=== PATIENT | female | born 1975 | race Caucasian/White ===

== ENCOUNTER 2017-10-17 15:10 | Day surgery (SDC) | payer BC, OTHER ==
[~2017-10-17] VITALS: Ht 170.2 cm; Wt 64.2 kg
[2017-10-17 15:49] VITALS: BP 107/71
[2017-10-17] MEDS ORDERED: MAGN400T36 PO (16:00)
[2017-10-17] MEDS ORDERED: ASCO250T3 PO (16:00)
[2017-10-17] MEDS ORDERED: PREN1COM10 PO (16:00)
[2017-10-17] MEDS ORDERED: L.AC1CAP6 PO (16:00)
[2017-10-17 16:01] LABS: BASOPHILS # (AUTO) 0.04 x10^3/uL (0-0.1); BASOPHILS % (AUTO) 0 % (0-1); EOSINOPHILS # (AUTO) 0.03 x10^3/uL (0-0.4); EOSINOPHILS % (AUTO) 0 % (1-7); LYMPHOCYTES # (AUTO) 1.44 x10^3/uL (1-3.4); LYMPHOCYTES % (AUTO) 16 % (22-44); MD NO; MEAN CORPUSCULAR HEMOGLOBIN 31.8 pg (27.0-34.8); MEAN CORPUSCULAR HGB CONC 34.8 g/dL (32.4-35.8); MEAN CORPUSCULAR VOLUME 91.4 fL (80-100); MEAN PLATELET VOLUME 7.1 fL (7.4-10.4); MONOCYTES # (AUTO) 0.29 x10^3/uL (0.2-0.8); MONOCYTES % (AUTO) 3 % (2-9); NEUTROPHILS # (AUTO) 7.12 x10^3/uL (1.8-6.8); NEUTROPHILS % (AUTO) 80 % (42-75); PLATELET COUNT 265 x10^3/uL (130-400); RED BLOOD COUNT 4.46 x10^6/uL (3.82-5.3)
[2017-10-17] MEDS ORDERED: LACTATED RINGERS 1,000 ML IV SCH ×2 (16:05→18:34)
[2017-10-17] MEDS ORDERED: LIDOCAINE-MPF 1%, 2ML INFIL ONE (16:30)
[2017-10-17] MEDS ORDERED: BUPIVACAINE 0.25% ONE (16:37)
[2017-10-17] MEDS ORDERED: OXYTOCIN 10 UNITS/ML, 1ML ONE (16:38)
[2017-10-17] MEDS ORDERED: SILVER NITRATE STICK TP ONE (16:38)
[2017-10-17] MEDS ORDERED: EPINEPHRINE 1 MG/ML, 1ML ONE (16:38)
[2017-10-17] MEDS ORDERED: VASOPRESSIN 20 UNIT/ML, 1ML ONE (16:38)
[2017-10-17] MEDS ORDERED: METHYLERGONOVINE 0.2 MG/ML IM ONE (16:38)
[2017-10-17] MEDS ORDERED: MISOPROSTOL 200 MCG TABLET ONE (16:38)
[2017-10-17] MEDS ORDERED: PROPOFOL 10 MG/ML, 20ML ONE (16:43)
[2017-10-17] MEDS ORDERED: MIDAZOLAM 1 MG/ML, 2ML ONE (16:46)
[2017-10-17] MEDS ORDERED: FENTANYL PF 100 MCG/2ML ONE (16:46)
[2017-10-17] MEDS ORDERED: ACETAMINOPHEN 325 MG TABLET PO PRN (17:00)
[2017-10-17] MEDS ORDERED: FENTANYL PF 100 MCG/2ML IV PRN (17:00)
[2017-10-17] MEDS ORDERED: OXYcodone 5 MG/5 ML ORAL.SOL UDC PO PRN (17:00)
[2017-10-17] MEDS ORDERED: PROMETHAZINE 12.5 MG SUPP PR PRN (17:00)
[2017-10-17] MEDS ORDERED: CEFAZOLIN 1,000 MG ONE (17:12)
[2017-10-17] MEDS ORDERED: DEXAMETHASONE 4 MG/ML, 1ML ONE (17:17)
[2017-10-17] MEDS ORDERED: KETOROLAC 30 MG/1 ML ONE (17:17)
[2017-10-17] MEDS ORDERED: ONDANSETRON 2MG/ML, 2ML ONE ×2 (17:17)
[2017-10-17] MEDS ORDERED: ACETAMINOPHEN 650 MG/20.3 ML UDC ONE (17:40)
[2017-10-17] MEDS ORDERED: OXYcodone 5 MG/5 ML ORAL.SOL UDC ONE (17:41)
[2017-10-17 18:45] VITALS: BP 111/73
[2017-10-17] MEDS ORDERED: ONDANSETRON 2MG/ML, 2ML IV PRN (19:00)
[2017-10-17] MEDS ORDERED: KETOROLAC 30 MG/1 ML IV PRN (19:00)
[2017-10-17] MEDS ORDERED: ONDANSETRON ODT 4 MG PO PRN (19:00)
== END 2017-10-17 20:15 | disposition home or self-care (01) ==
LOC: OUT 15:10 → 4NOR 18:22 → OUT 20:15
PROVIDERS: ATTEND Obstetrics & Gynecology
DX: O03.4 Incomplete spontaneous abortion without complication (principal); Z3A.08 8 weeks gestation of pregnancy
CPT/HCPCS: 36415; 59812; 85025; 86850; 86900; 88305; J0690; J1100; J1885; J2210; J2405; J2704; J3010; J3490; J7120; J0171; J2250; J2590